=== PATIENT | female | born 1955 | race Caucasian/White ===

== ENCOUNTER 2018-10-07 21:51 | Emergency (ER) | payer BC ==
[~2018-10-07] VITALS: Ht 172.7 cm; Wt 94.1 kg
[~2018-10-07 21:51] MED LIST: ALPRAZOLAM1 MG PO; ASPIRIN EC325 MG PO; ATENOLOL50 MG OR; ATENOLOL50 MG PO; BUPROPION HCL200 M1 PO; KEFLEX500 M1 PO; LISINOPRIL5 MG OR; LOSARTAN POT50 MG PO; MAXZIDE-2537.5 MG/TA PO; NAPROSYN500 MG OR; PAROXETINE20 MG PO; PERCOCET 10/31 COMBO PO; PERCOCET 5/325M1 TAB PO; ULTRAM50 M1 PO; VERAPAMIL HCL120 M2 PO; WELLBUTRIN SR150 MG PO
[2018-10-07 23:10] LABS: HEMATOCRIT 40.4 % (37.0-47.0); HEMOGLOBIN 13.5 g/dl (12.0-16.0); IMMATURE GRANULOCYTES 0.4 % (0.0-5.0); MEAN CELL VOLUME 89.4 fL CALC (80.0-100.0); MEAN CORPUSCULAR HGB 29.9 pG CALC (26.0-32.0); MEAN CORPUSCULAR HGB CONC 33.4 g/L CALC (32.0-36.0); NEUT# 7.59 thou/uL (2.00-7.15); RED BLOOD COUNT 4.52 mill/uL (4.20-5.60); RED CELL DISTRI WIDTH 12.6 % (11.5-15.5)
[2018-10-07 23:23] LABS: ALBUMIN 3.9 g/dL (3.2-5.0); ALKALINE PHOSPHATASE 81 u/l (38-126); AMYLASE 38 u/l (30-110); ANION GAP 13 (6-22 (CALC)); BILIRUBIN, TOTAL 0.8 mg/dL (0.0-1.4); BUN 13 mg/dL (8-23); BUN/CREATININE RATIO 17 (12-20 (CALC)); CARBON DIOXIDE 26 mmol/l (22-30); CHLORIDE 102 mmol/l (95-108); CREATININE 0.8 mg/dL (0.5-1.0); GFR > 60 ML/MIN (>=60 (CALC)); GFR FOR AFR.AMER. > 60 ML/MIN (>=60 (CALC)); LIPASE 27 u/l (23-300); POTASSIUM 3.8 mmol/l (3.5-5.1); SGOT/AST 34 u/l (9-36); SODIUM 137 mmol/l (137-146); TOTAL PROTEIN 6.8 g/dL (6.3-8.2)
[2018-10-08] MEDS ORDERED: MIRALAX3350 N1 PO (00:49)
[2018-10-08 01:20] VITALS: BP 168/74
== END 2018-10-08 01:20 | disposition home or self-care (01) | DRG 392 ==
LOC: ED 21:51
PROVIDERS: Family Medicine
DX: R10.84 Generalized abdominal pain (principal); M19.90 Unspecified osteoarthritis, unspecified site; I10 Essential (primary) hypertension; Q63.0 Accessory kidney; Z90.5 Acquired absence of kidney
CPT/HCPCS: Q9967

== ENCOUNTER → 2019-02-13 | Outpatient (REF) ==
[~2019-02-13] MED LIST changes: +MIRALAX3350 N1 PO
== END | disposition home or self-care (01) | DRG 684 ==
LOC: LAB 10:07
PROVIDERS: ATTEND Internal Medicine Nephrology
DX: N17.9 Acute kidney failure, unspecified (principal)

== ENCOUNTER 2025-01-12 13:38 | Emergency (ER) | payer MEDICARE ==
[2025-01-12] VITALS (25 sets, daily range): BP systolic 70–129; BP diastolic 28–98
[~2025-01-12] VITALS: Ht 172.7 cm; Wt 101.3 kg
[2025-01-12] MEDS ORDERED: METOPROLOL TARTRATE 5 MG/5 ML VIAL IV ONE (14:05)
[2025-01-12] MEDS ORDERED: SODIUM CHLORIDE 0.9% 1,000 ML IV ONE (14:05)
[2025-01-12] MEDS ORDERED: ONDANSETRON HCl 4 MG/2 ML SDV IV ONE (14:05)
[2025-01-12] MEDS ORDERED: ZPAK PO (14:19)
[2025-01-12] MEDS ORDERED: XARELTO20 MG PO (14:20)
[2025-01-12] MEDS ORDERED: DILTIAZEM HCL180 MG PO (14:20)
[2025-01-12 14:27] LABS: BASO% 0.5 % (0-3); EOS% 0.7 % (0-8); HEMATOCRIT 45.9 % (37.0-47.0); HEMOGLOBIN 14.9 g/dl (12.0-16.0); IMMATURE GRANULOCYTES 0.2 % (0.0-5.0); LYMPH% 36.9 % (15-41); MEAN CELL VOLUME 88.8 fL CALC (80.0-100.0); MEAN CORPUSCULAR HGB 28.8 pG CALC (26.0-32.0); MEAN CORPUSCULAR HGB CONC 32.5 g/dL CAL (32.0-36.0); MONO% 16.4 % (2-13); NEUT# 1.9 thou/uL (2.00-7.15); NEUT% 45.3 % (42-76); RED BLOOD COUNT 5.17 mill/uL (4.20-5.60); RED CELL DISTRI WIDTH 13.1 % (11.5-15.5)
[2025-01-12 15:26] LABS: ALBUMIN 3.8 g/dL (3.2-5.0); ALKALINE PHOSPHATASE 59 u/l (38-126); ANION GAP 13 (6-22 (CALC)); BILIRUBIN, TOTAL 0.6 mg/dL (0.02-1.3); BUN 22 mg/dL (8-23); BUN/CREATININE RATIO 15 (12-20 (CALC)); CARBON DIOXIDE 25 mmol/l (22-30); CHLORIDE 101 mmol/l (95-108); CREATININE 1.4 mg/dL (0.5-1.0); ESTIMATED GFR 41 ML/MIN (>=90 (CALC)); POTASSIUM 4.3 mmol/l (3.5-5.1); SGOT/AST 36 u/l (9-36); SODIUM 135 mmol/l (137-146); TOTAL PROTEIN 6.6 g/dL (6.3-8.2)
[2025-01-12 15:33] LABS: PROTHROMBIN TIME 11.1 SECONDS (9.0-12.5)
[2025-01-12] MEDS ORDERED: methylPREDNISolone SODIUM SUCC 125 MG/2 ML SDV IV ONE (16:00)
[2025-01-12] MEDS ORDERED: IPRATROPIUM-Albuterol 0.5MG-2.5MG/3 ML NEB ONE (16:05)
[2025-01-12 16:24] LABS: URINE BILIRUBIN - DIPSTICK Negative (NEGATIVE); URINE BLOOD DIPSTICK Negative (NEGATIVE); URINE GLUCOSE - DIPSTICK Negative (NEGATIVE); URINE KETONE Negative (NEGATIVE); URINE LEUK ESTERASE Negative (NEGATIVE); URINE NITRITE - DIPSTICK Negative (Negative); URINE PH 5.5 (4.5-8.0); URINE PROTEIN - DIPSTICK 30 mg/dL (NEG-TRACE); URINE UROBILINOGEN - DIPSTICK 0.2 E.U./dL (0.2)
[2025-01-12 16:26] LABS: URINE COLOR Yellow
[2025-01-12 16:32] LABS: URINE RBC 0-2 RBC/hpf (0-5)
[2025-01-12 16:33] LABS: URINE HYALINE CAST FEW lpf (NONE-RARE); URINE SQUAMOUS EPITHELIAL CELL FEW EPI/hpf (0-FEW); URINE WBC 0-2 WBC/hpf (0-5)
[2025-01-12] MEDS ORDERED: ORPHENADRINE CITRATE 30 MG/ML AMP IV ONE (18:15)
[2025-01-12] MEDS ORDERED: ALBUTEROL SULFATE 8 GM INH IN ONE (18:20)
[2025-01-12] MEDS ORDERED: MEDDOSEPAK PO (18:22)
== END 2025-01-12 18:49 | disposition home or self-care (01) ==
LOC: ED 13:38
PROVIDERS: Nurse Practitioner
DX: J11.1 Influenza due to unidentified influenza virus with other respiratory manifestations (principal); E86.0 Dehydration; I48.91 Unspecified atrial fibrillation; I10 Essential (primary) hypertension; Z90.5 Acquired absence of kidney
CPT/HCPCS: J2360; J2405